=== PATIENT | female | born 2005 | race Caucasian/White ===

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

== ENCOUNTER 2025-02-22 05:21 | Emergency (ER) | payer MEDICAID ==
[~2025-02-22] VITALS: Ht 157.5 cm; Wt 51.9 kg
[2025-02-22 05:25] VITALS: BP 122/87; PULSE 79; TEMP 98.3; O2SAT 100
[2025-02-22 05:37] VITALS: RESP 16
--- NOTE | 2025-02-22 05:40 | Physician Documentation ---
History of Present Illness ~ Chief Complaint: Vaginal Bleeding Stated Complaint: BLOOD IN URINE/ Time Seen by MD: 05:37 Mode of Arrival: POV HPI Patient presents to the emergency room stating she has 11 weeks by ultrasound. She states she went to urinate this morning that has a lot of blood. She did not take a picture of the blood. Of note, patient has been here several times before claiming to be blind and all workup was negative. She has not complained of blindness today and is making good eye contact. She denies abdominal pain Medication Reconciliation Allergies: Coded Allergies: orange (Verified Allergy, Unknown, Hives, anaphylaxis, 09/04/24) Scheduled PRN Hydroxyzine Hcl (Atarax), 1 TAB PO Q12H PRN for for anxiety/agitation ONDANSETRON ODT 4mg tablet (Ondansetron Odt), 1 TAB PO Q6H PRN PRN for nausea/vomiting Review of Systems ROS All review of systems negative except as per HPI Physical Exam Vital Signs: Temperature: 98.3, Source: Oral, Heart Rate: 79, Respiratory Rate: 16, BP: 122/87, Pulse Oximetry: 100, Weight: 51.900 General Appearance General: Patient is awake, alert, oriented x4 in no acute distress and well appearing.~ Head: Normocephalic and atraumatic. Eyes: Conjunctival normal. EOMI. PERRL. ENT: Mucous membranes moist. Neck: Supple, trachea is midline. Chest: Clear to auscultation bilaterally without rales, rhonchi, or wheezes. There is no accessory muscle use or retractions. Cardiac: RRR without murmurs, gallops, or rubs. Abd: Soft, nondistended, nontender, with normoactive bowel sounds. No guarding, rebound, or rigidity. Progress Results/Orders Results/Orders Orders - FRAN PERSAUD MD Straight Cath For Urine Sample (02/22/25 05:26) Completed Orders - FRAN PERSAUD MD Hcg, Ur Ql (02/22/25 05:26) Cbc/Diff (02/22/25 05:37) BMP (02/22/25 05:37) Type And Screen (02/22/25 05:37) Hcg Serum Qt (02/22/25 05:37) Ua W/Microscopic, Cult If Ind (02/22/25 05:45) Vital Signs 02/22/25 02/22/25 05:25 05:37 Temp 98.3 Pulse 79 Resp 16 16 B/P (MAP) 122/87 Pulse Ox 100 Laboratory Tests Test 02/22/25 05:45 02/22/25 06:04 Urine Specimen Description Cln catch midstream Urine Color Yellow Urine Clarity Slightly cloudy Urine pH 8.0 Urine Specific [place] 1.020 Urine Protein Trace Urine Glucose (UA) Negative Urine Ketones Negative Urine Occult Blood Large H Urine Nitrite Negative Urine Bilirubin Negative Urine Urobilinogen 0.2 Urine Leukocyte Esterase Small H Urine RBC 3-10 Urine WBC 5-10 H Urine Squamous Epithelial Cells Many Urine Bacteria 1+ Urine Mucus None seen Urine Culture Indicated Rejected for culture Volume Urine Centrifuged 10 ml Urine HCG, Qualitative Positive Urine Comment White Blood Count 6.0 Red Blood Count 3.85 L Hemoglobin 9.7 L Hematocrit 29.7 L Mean Corpuscular Volume 77.2 L Mean Corpuscular Hemoglobin 25.1 L Mean Corpuscular Hemoglobin Concent 32.5 L Red Cell Distribution Width 19.0 H Platelet Count 339 Mean Platelet Volume 7.0 L Neutrophils (%) (Auto) 63.6 Lymphocytes (%) (Auto) 26.6 Monocytes (%) (Auto) 7.4 Eosinophils (%) (Auto) 1.9 Basophils (%) (Auto) 0.5 Neutrophils # (Auto) 3.8 Lymphocytes # (Auto) 1.6 Monocytes # (Auto) 0.4 Eosinophils # (Auto) 0.1 Basophils # (Auto) 0.0 CBC Comment Platelet Estimate Normal Red Blood Cell Morphology Perf Polychromasia Few Hypochromasia 2+ Poikilocytosis 1+ Basophilic Stippling Anisocytosis 2+ Microcytosis Few Sodium Level 136 Potassium Level 3.8 Chloride Level 103 Carbon Dioxide Level 24.0 Anion Gap 9 Blood Urea Nitrogen 6 L Creatinine 0.42 Estimated GFR/1.73 m2 > 90 BUN/Creatinine Ratio 14.3 Glucose Level 83 Calcium Level 8.9 Albumin 3.1 L HCG Beta Subunit 43482 Chemistry Comments Medical Decision Making Findings Patient presents to the emergency room for evaluation of vaginal bleeding in . Differentials include but are not limited to anemia, miscarriage, threatened miscarriage, menstrual cycle therefore emergent labs ordered. Oncoming physician to follow up labs and possible imaging. Departure Disposition: LEFT AWOL/ELOPED Impression: Primary Impression: First trimester bleeding Additional Impression: Eloped from emergency department Referrals: NO PRIMARY CARE PROVIDER (PCP) Education Educated: Patient Educated regarding: diagnosis, need for follow up Signature Scribe Signature: . Attestation: The note accurately reflects work and decisions made by me.Fran Persaud MD 02/22/25 19:26 . Addendum Patient presents to the emergency room stating she has 11 weeks by ultrasound. She states she went to urinate this morning that has a lot of blood. She did not take a picture of the blood. Of note, patient has been here several times before claiming to be blind and all workup was negative. She has not complained of blindness today and is making good eye contact. She denies abdominal pain. 8:22 a.m.: I went to check on the patient and she had eloped. I was able to phone and get in touch with her and she told me that she is going to go to [facility] because that is where all her records are. I encouraged her to go there [facility] (or return here) she denied any orthostatic symptoms at this time. FRAN PERSAUD MD Feb 22, 2025 05:40 CEASAR AHMADI MD Feb 22, 2025 06:15
[2025-02-22 06:17] LABS: MEAN PLATELET VOLUME 7.0 FL (7.4-10.4); RED CELL DISTRIBUTION WIDTH 19.0 % (11.5-14.5)
[2025-02-22 06:23] LABS: LEUKOCYTE ESTERASE ,URINE SMALL (Neg); NITRITES, URINE NEGATIVE (Neg); OCCULT BLOOD,URINE LARGE (Neg)
[2025-02-22 06:24] LABS: URINE HCG POSITIVE (NEG)
[2025-02-22 06:29] LABS: UA COLLECTION TYPE CLN CATCH MIDSTREAM
[2025-02-22 06:33] LABS: MUCUS STRANDS NONE SEEN /LPF (Neg); SQUAMOUS EPITHELIAL CELL,UR MANY /LPF (FEW)
[2025-02-22 06:49] LABS: CREATININE 0.42 MG/DL (0.40-0.90); TOTAL CARBON DIOXIDE 24.0 MMOL/L (24-32); eCRCL 170 ML/MIN; eGFR > 90 ML/MIN
[2025-02-22 08:58] LABS: PLATELET ESTIMATE NORMAL
== END 2025-02-22 08:05 | disposition left against medical advice (07) ==
LOC: ER 05:22
DX: O20.9 Hemorrhage in early pregnancy, unspecified (principal); Z3A.11 11 weeks gestation of pregnancy; Z91.018 Allergy to other foods
CPT/HCPCS: 36415; 80048; 81001; 81025; 84702; 85008; 85025; 86885; 86900; 86901; 99283